=== PATIENT | female | born 1970 | race Caucasian/White ===

== ENCOUNTER 2018-11-21 00:14 | Emergency (ER) | payer OTHER ==
[~2018-11-21] VITALS: Ht 165.1 cm; Wt 68.0 kg
[~2018-11-21 00:14] MED LIST: ADVAIR 5001 DISK W/1; AMBIEN10 MG; PAXIL10 MG/5 ML
== END 2018-11-21 10:06 | disposition home or self-care (01) ==
LOC: ER 00:14
DX: T42.4X2A Poisoning by benzodiazepines, intentional self-harm, initial encounter (principal); R53.81 Other malaise; F32.9 Major depressive disorder, single episode, unspecified; Y92.89 Other specified places as the place of occurrence of the external cause; Y93.89 Activity, other specified; Y99.8 Other external cause status

== ENCOUNTER 2019-03-19 12:08 | Emergency (ER) | payer OTHER ==
[~2019-03-19] VITALS: Ht 167.6 cm; Wt 72.6 kg
[2019-03-19] MEDS ORDERED: XANAX XR2 MG PO (12:36)
== END 2019-03-20 14:34 | disposition designated cancer center or children's hospital (05) ==
LOC: ER 12:08
DX: T42.4X2A Poisoning by benzodiazepines, intentional self-harm, initial encounter (principal); R45.851 Suicidal ideations; J45.998 Other asthma